=== PATIENT | male | born 1965 | race Caucasian/White ===

== ENCOUNTER 2018-10-21 10:24 | Day surgery (SDC) | payer BC ==
[~2018-10-21 10:24] MED LIST: Propofol 200 MG/20 ML SDV ONE; Sodium Chloride 0.9% 10 ML Syringe FLUSH PRN
[2018-10-21] MEDS: Lactated Ringers 1,000 ML IV SCH (10:44)
[2018-10-21] MEDS ORDERED: Midazolam 1 MG/ML 2 ML SDV ONE ×2 (10:49→10:50)
--- NOTE | 2018-10-21 10:49 | PCM.HPR ---
H & P Addendum review - H & P Addendum Review Date of Original H & P: 10/08/18 Date Reviewed: 10/21/18 Time Reviewed: 10:49 Patient was Examined: No Changes
[2018-10-21] MEDS ORDERED: Propofol 200 MG/20 ML SDV ONE (10:50)
--- NOTE | 2018-10-21 11:14 | PCM.OPNOTE ---
- General Post-Op/Procedure Note Date of Surgery/Procedure: 10/21/18 Operative Procedure(s): Colonoscopy Findings: Normal Pre Op Diagnosis: FH Colon Ca Post-Op Diagnosis: Same Anesthesia Technique: MAC Primary Surgeon: Henry Medrano Anesthesia Provider: Serene Blanton Complications: None Condition: Good
[2018-10-21 13:14] VITALS: BP 132/90
--- NOTE | 2018-10-21 14:58 | OR ---
Date of Procedure: 10/21/2018 PREOPERATIVE DIAGNOSIS: Family history of colon cancer. POSTOPERATIVE DIAGNOSIS: Normal colonoscopy. PROCEDURE: Colonoscopy. ANESTHESIA: IV sedation. DESCRIPTION OF PROCEDURE: The patient was brought to the procedure room where he was placed on his left side and IV sedation administered. Digital rectal exam was performed which was normal. Colonoscope was inserted and advanced to the level of the cecum without difficulty. Cecal position was confirmed by identifying the appendiceal lumen and the ileocecal valve. Prep was good and surfaces were well visualized. Upon withdrawing the scope, the ascending, transverse, and descending colon were normal in appearance. Sigmoid colon and rectum were normal. Retroflexion was normal. Air was removed and the scope withdrawn. The patient tolerated the procedure well and returned to Recovery in stable condition. Recommend routine colon screening again in 5 years. AZRA SHORT MD /[id number]
== END 2018-10-21 12:19 | disposition home or self-care (01) ==
LOC: LL.SDS 10:24
PROVIDERS: ATTEND Surgery
DX: Z12.11 Encounter for screening for malignant neoplasm of colon (principal); Z80.0 Family history of malignant neoplasm of digestive organs; I10 Essential (primary) hypertension; E78.5 Hyperlipidemia, unspecified; J45.20 Mild intermittent asthma, uncomplicated; Z88.8 Allergy status to other drugs, medicaments and biological substances; Z79.51 Long term (current) use of inhaled steroids; Z79.899 Other long term (current) drug therapy
CPT/HCPCS: J2250; J2704; J7120

== ENCOUNTER 2022-10-18 13:30 | Emergency (ER) | payer BC, OTHER ==
[2022-10-18 13:43] VITALS: PULSE 72
[2022-10-18] MEDS: Bacitracin Oint 1 GM U/D Packet TOP ONE (14:29)
[2022-10-18 14:30] VITALS: BP 144/104
== END 2022-10-18 14:35 | disposition home or self-care (01) ==
LOC: LL.ED 13:30
DX: S01.01XA Laceration without foreign body of scalp, initial encounter (principal); I10 Essential (primary) hypertension; J44.9 Chronic obstructive pulmonary disease, unspecified; Z88.8 Allergy status to other drugs, medicaments and biological substances; Z79.82 Long term (current) use of aspirin; W22.09XA Striking against other stationary object, initial encounter
CPT/HCPCS: 12001; 99282; 99283